=== PATIENT | female | born 1990 | race Caucasian/White ===

== ENCOUNTER 2017-06-15 16:45 | Emergency (ER) | payer MEDICAID ==
[2017-06-15] MEDS ORDERED: Ketorolac 60 MG/2 ML SDV IM ONE (17:40)
--- NOTE | 2017-06-15 17:40 | EDM.PDOC ---
<Shin Hancock - Last Filed: 06/15/17 17:36> ED HPI GENERAL MEDICAL PROBLEM - General Chief Complaint: Genitourinary Problem Stated Complaint: STONES Time Seen by Provider: 06/15/17 17:30 Source of Information: Reports: Patient, Family History Limitations: Reports: No Limitations - History of Present Illness INITIAL COMMENTS - FREE TEXT/NARRATIVE: 27-year-old female with a long history of recurring nephrolithiasis developed sudden onset of right flank pain one hour ago. She has nausea but no vomiting. She feels chilled but not febrile. She was feeling fine up until the symptoms started. She is currently breast-feeding. No diarrhea, no shortness of breath or cough. Onset: Sudden Duration: Hour(s): (One hour ago), Other (Right flank) Severity: Moderate Improves with: Reports: None Associated Symptoms: Reports: Malaise, Nausea/Vomiting. Denies: Chest Pain, Cough, Shortness of Breath Right Lumbar Pain Score (Numeric/FACES): 10 - Related Data Allergies Allergy/AdvReac Type Severity Reaction Status Date / Time sumatriptan [From Imitrex] Allergy Chest Verified 06/15/17 17:20 Presssure sumatriptan succinate Allergy Chest Verified 06/15/17 17:20 [From Imitrex] Presssure hydrocodone bitartrate AdvReac Stomach Verified 06/15/17 17:20 [From Vicodin] Upset tape Allergy Rash Uncoded 06/15/17 17:20 Home Meds: Home Meds Albuterol Sulfate [Albuterol Sulfate HFA] 1 - 2 puff IH Q4H PRN 11/28/13 [ History] Vit37/Iron/Folic Acid [Prenata] 1 each PO DAILY 09/24/16 [History] Omeprazole 20 mg PO BEDTIME 02/26/17 [History] Past Medical History Other HEENT History: report frequent ear infections Respiratory History: Reports: Asthma Genitourinary History: Reports: Renal Calculus 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, Other OB/BYN History: G-2 P-1 Neurological History: Reports: Migraines Psychiatric History: Reports: Anxiety, Depression - Infectious Disease History Infectious Disease History: Reports: Chicken Pox - Past Surgical History HEENT Surgical History: Reports: Oral Surgery Female Surgical History: Reports: Endometrial Ablation Social & Family History - Tobacco Use Smoking Status *Q: Unknown Ever Smoked Years of Tobacco use: 6 Packs/Tins Daily: 0.5 Used Tobacco, but Quit: No Month Tobacco Last Used: today, smoking 6 to 10 cigarettes per day Second Hand Smoke Exposure: Yes - Caffeine Use Caffeine Use: Reports: None - Alcohol Use Days Per Week of Alcohol Use: 0 Number of Drinks Per Day: 4 Total Drinks Per Week: 0 - Recreational Drug Use Recreational Drug Use: No - Living Situation & Occupation Living situation: Reports: Single, with Family ED ROS GENERAL - Review of Systems Review Of Systems: See Below Constitutional: Reports: Chills, Malaise. Denies: Fever HEENT: Reports: No Symptoms Respiratory: Denies: Shortness of Breath, Cough Cardiovascular: Denies: Chest Pain GI/Abdominal: Reports: Abdominal Pain (Pain across the right abdomen) : Reports: Flank Pain. Denies: Frequency Musculoskeletal: Reports: Back Pain Skin: Reports: No Symptoms Neurological: Reports: No Symptoms Psychiatric: Reports: No Symptoms Free Text/Narrative/Comment: Patient received a Depo-Provera shot yesterday for control ED EXAM, GENERAL - Physical Exam Exam: See Below Exam Limited By: No Limitations General Appearance: Alert, Mild Distress (Looks uncomfortable, laying on her right side) Eye Exam: Bilateral Eye: Normal Inspection (No jaundice) Head: Atraumatic Respiratory/Chest: No Respiratory Distress, Lungs Clear Cardiovascular: Regular Rate, Rhythm GI/Abdominal: Tender (Reacts with tenderness to palpation across the right abdomen) Back Exam: CVA Tenderness (R), CVA Tenderness (L) (Any percussion of the back causes her to wince with discomfort) Neurological: Alert, Oriented Skin Exam: Warm, Dry Course - Vital Signs Last Recorded V/S: Last Vital Signs Temp 36.7 C 06/15/17 19:59 Pulse 66 06/15/17 19:59 Resp 16 06/15/17 19:59 BP 96/55 L 06/15/17 19:59 Pulse Ox 96 06/15/17 19:59 - Orders/Labs/Meds Orders: Active Orders 24 hr Category Date Time Status Abdomen Pelvis wo Cont [CT] Stat Exams 06/15/17 17:47 Taken BASIC METABOLIC PANEL,BMP [CHEM] Urgent Lab 06/15/17 19:13 Received Labs: Laboratory Tests 06/15/17 06/15/17 06/15/17 Range/Units 17:29 17:31 19:13 WBC 14.6 H (4.5-11.0) K/uL RBC 4.78 (3.30-5.50) M/uL Hgb 14.9 (12.0-15.0) g/dL Hct 43.6 (36.0-48.0) % MCV 91 (80-98) fL MCH 31 (27-31) pg MCHC 34 (32-36) % Plt Count 194 (150-400) K/uL Neut % (Auto) 83 H (36-66) % Lymph % (Auto) 12 L (24-44) % [place] % (Auto) 5 (2-6) % Eos % (Auto) 1 L (2-4) % Baso % (Auto) 0 (0-1) % Urine Color Yellow Urine Appearance Clear Urine pH 5.0 (4.5-8.0) Ur Specific [place] 1.020 (1.008-1.030) Urine Protein Trace (NEGATIVE) mg/dL Urine Glucose (UA) Normal (NEGATIVE) mg/dL Urine Ketones Negative (NEGATIVE) mg/dL Urine Occult Blood Large (NEGATIVE) Urine Nitrite Negative (NEGATIVE) Urine Bilirubin Small (NEGATIVE) Urine Urobilinogen Normal (NORMAL) mg/dL Ur Leukocyte Esterase Small (NEGATIVE) Urine RBC 20-30 H (0-5) Urine WBC 5-10 H (0-5) Ur Epithelial Cells Moderate Amorphous Sediment Few Urine Bacteria Few Urine Mucus Moderate Urine Other See note Urine HCG, Qual Negative Meds: Medications Discontinued Medications Generic Name Dose Route Start Last Admin Trade Name Rony PRN Reason Stop Dose Admin Ketorolac Tromethamine 60 mg 06/15/17 17:40 06/15/17 17:43 Toradol IM 06/15/17 17:41 60 mg ONETIME ONE Administration Tamsulosin HCl 0.4 mg 06/15/17 19:51 06/15/17 19:57 Flomax PO 06/15/17 19:52 0.4 mg ONETIME ONE Administration - Re-Assessments/Exams Free Text/Narrative Re-Assessment/Exam: 06/15/17 17:40 A UA was obtained. Patient was given 60 mg of Toradol IM which will be followed by a noncontrast CT scan of the abdomen and pelvis. 06/15/17 17:40 Care was turned over to Dr. Castro pending CT scan Departure - Departure Disposition: Home, Self-Care 01 Clinical Impression: Kidney stone - Discharge Information Referrals: PCP,None [Primary Care Provider] - Forms: ED Department Discharge Additional Instructions: You have a 9 mm stone at the beginning of the right ureter. Dr Schwartz, the Urologist second watch sergeant for in [place] wants you to try and pass it. He will have his clinic contact you about an appointment next week. In the meantime be sure you get plenty of liquids to drink but don't overdo it. Try to eat a regular diet. If you notice that you are beginning to have a fever then you should be reevaluated immediately. Take Flomax or tamsulosin 0.4 mg once daily to help the kidney stone pass. This can be secreted in breast milk but is also given to children for some bladder problems. uses it in all the time so it should be okay. For pain first try taking ibuprofen up to 400 mg 3 times per day. This is very similar to the medication you received in the ER. For more pain control you may use the Percocet (oxycodone/acetaminophen 5/325, # 15 tablets.) This is a mild narcotic. It is secreted in breast milk in small amounts. The side effect to watch out for in your baby is sedation. If your baby seems to be getting sedated then stop the medication and once the sedation is gone away you could restart it but at a lower dose. It will also cause sedation in you. It can impair driving. Note that each Percocet tablet has the equivalent of a regular 325 mg tablet of Tylenol. You should not take more than a total of 3000 mg of Tylenol per day. Just keep that in mind in case you decide to take some regular Tylenol to go along with the Percocet. - My Orders Last 24 Hours: My Active Orders 06/15/17 19:13 BASIC METABOLIC PANEL,BMP [CHEM] Urgent - Assessment/Plan Last 24 Hours: My Active Orders 06/15/17 19:13 BASIC METABOLIC PANEL,BMP [CHEM] Urgent <Kenji Castro - Last Filed: 06/15/17 20:20> Course - Re-Assessments/Exams Free Text/Narrative Re-Assessment/Exam: 06/15/17 20:15 This patient was turned over to me at approximately 1845. A CT for kidney stone was pending at the time. This lady has had a history of kidney stones and now with right flank pain for a few hours. CT showed a 9 mm stone at the right ureteropelvic junction with pretty severe hydronephrosis. I spoke with Dr. Colvin at [facility]. He wants her to try to pass the stone. He recommended Flomax 0.4 mg in addition to any analgesics. He said that he uses this medication in a lot and has never had any problems with it. There's not much information and literature about using this in breast-feeding women. I do note that it can be used during and is sometimes used in children so I think it'll be safe for her. I also reviewed use of ibuprofen and believe that it will be safe for her. I reviewed oxycodone in breast-feeding. It is secreted breastmilk and small amounts but I don't believe it will be enough to cause sedation. I reviewed an article in the journal of pediatrics from September 2011, that is the abstract, and believe that should be safe. Mom was counseled about sedation with the medication. See detailed discharge instructions. Departure - Departure Time of Disposition: 20:05 Condition: Fair
[2017-06-15] MEDS ORDERED: Tamsulosin 0.4 MG Cap.ER PO ONE (19:51)
[2017-06-15 20:00] VITALS: BP 96/55
== END 2017-06-15 20:28 | disposition home or self-care (01) ==
LOC: JP.ED 16:45
DX: N13.2 Hydronephrosis with renal and ureteral calculous obstruction (principal); J45.909 Unspecified asthma, uncomplicated; F32.9 Major depressive disorder, single episode, unspecified; Z98.890 Other specified postprocedural states; Z91.048 Other nonmedicinal substance allergy status; Z88.5 Allergy status to narcotic agent
CPT/HCPCS: 36415; 74176; 80048; 81001; 81025; 85025; 96372; 99284; A9270; J1885

== ENCOUNTER 2017-07-13 23:22 | Emergency (ER) | payer MEDICAID ==
[2017-07-14 00:54] VITALS: BP 126/77
--- NOTE | 2017-07-14 01:18 | EDM.PDOC ---
ED HPI GENERAL MEDICAL PROBLEM - General Chief Complaint: General Stated Complaint: SURGERY TODAY - TINGLING IN HANDS AND FEET/LEGS Time Seen by Provider: 07/14/17 01:00 Source of Information: Reports: Patient, Old Records History Limitations: Reports: No Limitations - History of Present Illness INITIAL COMMENTS - FREE TEXT/NARRATIVE: 27 yo female had an unknown type of anesthesia early 07/13/2017 for lithotripsy at an outside facility. Several hrs after she was discharged she developed tingling of her fingers/toes. Does not feel anxious. Has also some weakness of her hand grasps bilaterally. No GRAHAM. No fever. Is only on oxybutynin currently for meds. PHx of child , endometriosis, and kidney stone. Onset Date: 07/13/17 Onset Time: 15:00 Duration: Hour(s):, Constant Location: Reports: Upper Extremity, Left, Upper Extremity, Right, Lower Extremity, Left, Lower Extremity, Right Quality: Reports: Other (numbness/tingling) Severity: Mild Improves with: Reports: None Worsens with: Reports: Other (? time) Context: Reports: Other (Had anesthesia for kidney stone lithotripsy yesterday morning 07/13.) Associated Symptoms: Reports: Weakness (in hands bilat.) Treatments FULL TIME: Reports: Other (see below) (none) Right Flank Pain Score (Numeric/FACES): 7 - Related Data Allergies Allergy/AdvReac Type Severity Reaction Status Date / Time sumatriptan [From Imitrex] Allergy Chest Verified 07/14/17 00:45 Presssure sumatriptan succinate Allergy Chest Verified 07/14/17 00:45 [From Imitrex] Presssure hydrocodone bitartrate AdvReac Stomach Verified 07/14/17 00:45 [From Vicodin] Upset tape Allergy Rash Uncoded 07/14/17 00:45 Home Meds: Home Meds Albuterol Sulfate [Albuterol Sulfate HFA] 1 - 2 puff IH Q4H PRN 11/28/13 [ History] Vit37/Iron/Folic Acid [Prenata] 1 each PO DAILY 09/24/16 [History] Cephalexin [Keflex] 250 mg PO QID 07/14/17 [History] Oxybutynin Chloride [Ditropan Xl] 10 mg PO DAILY 07/14/17 [History] Past Medical History Other HEENT History: report frequent ear infections Respiratory History: Reports: Asthma Genitourinary History: Reports: Renal Calculus, Other (See Below) Other Genitourinary History: lithotripsy with stent 07/13/17 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, Other OB/BYN History: G-2 P-1 Neurological History: Reports: Migraines Psychiatric History: Reports: Anxiety, Depression - Infectious Disease History Infectious Disease History: Reports: Chicken Pox - Past Surgical History HEENT Surgical History: Reports: Oral Surgery Female Surgical History: Reports: Endometrial Ablation Social & Family History - Tobacco Use Smoking Status *Q: Current Every Day Smoker Years of Tobacco use: 10 Packs/Tins Daily: 0.5 Used Tobacco, but Quit: No Month Tobacco Last Used: today, smoking 6 to 10 cigarettes per day Second Hand Smoke Exposure: Yes - Caffeine Use Caffeine Use: Reports: None - Alcohol Use Days Per Week of Alcohol Use: 0 Number of Drinks Per Day: 4 Total Drinks Per Week: 0 - Recreational Drug Use Recreational Drug Use: No - Living Situation & Occupation Living situation: Reports: Single, with Family ED ROS GENERAL - Review of Systems Review Of Systems: See Below Constitutional: Reports: No Symptoms HEENT: Reports: No Symptoms Respiratory: Reports: No Symptoms Cardiovascular: Reports: No Symptoms GI/Abdominal: Reports: No Symptoms : Reports: No Symptoms Musculoskeletal: Reports: No Symptoms Skin: Reports: No Symptoms Neurological: Reports: Numbness (Of extremities) Psychiatric: Reports: No Symptoms. Denies: Anxiety ED EXAM, GENERAL - Physical Exam Exam: See Below Exam Limited By: No Limitations General Appearance: Alert, WD/WN, No Apparent Distress. No: Anxious Eye Exam: Bilateral Eye: Normal Inspection Ears: Normal External Exam, Normal Canal, Hearing Grossly Normal, Normal TMs Ear Exam: Bilateral Ear: Auricle Normal, Canal Normal Nose: Normal Inspection, Normal Mucosa, No Blood Throat/Mouth: Normal Inspection, Normal Lips, Normal Oropharynx, Normal Voice, No Airway Compromise Head: Atraumatic, Normocephalic Neck: Normal Inspection, Supple, Non-Tender Respiratory/Chest: No Respiratory Distress, Lungs Clear, Normal Breath Sounds, No Accessory Muscle Use Cardiovascular: Regular Rate, Rhythm, No Edema Back Exam: Normal Inspection Extremities: Normal Inspection, Non-Tender, No Pedal Edema Neurological: Alert, Oriented, CN II-XII Intact, Normal Cognition, No Motor/ Sensory Deficits, Other (hand grasp strength 4/5 bilaterally, other areas seem to be 5/5) Psychiatric: Normal Affect, Normal Mood Skin Exam: Warm, Dry, Intact, Normal Color, No Rash Lymphatic: No Adenopathy Course - Vital Signs Last Recorded V/S: Last Vital Signs Temp 36.8 C 07/14/17 00:53 Pulse 63 07/14/17 00:53 Resp 16 07/14/17 00:53 BP 126/77 07/14/17 00:53 Pulse Ox 98 07/14/17 00:53 Departure - Departure Time of Disposition: 01:20 Disposition: Home, Self-Care 01 Condition: Good Clinical Impression: Paresthesia - Discharge Information Referrals: Johanny Marroquin PA [Primary Care Provider] - Forms: ED Department Discharge Additional Instructions: If your numbness does not resolve by early tomorrow afternoon discuss with your family doctor. He may elect to refer you to neurology if no cause or treatment is apparent and symptoms persist.
== END 2017-07-14 01:23 | disposition home or self-care (01) ==
LOC: JP.ED 23:22
DX: R20.2 Paresthesia of skin (principal); F17.210 Nicotine dependence, cigarettes, uncomplicated; J45.909 Unspecified asthma, uncomplicated; Z79.899 Other long term (current) drug therapy; Z91.09 Other allergy status, other than to drugs and biological substances; Z88.8 Allergy status to other drugs, medicaments and biological substances
CPT/HCPCS: 99284

== ENCOUNTER 2017-07-15 14:44 | Emergency (ER) | payer MEDICAID ==
[2017-07-15 14:59] VITALS: BP 116/74
[2017-07-15] MEDS ORDERED: Ketorolac 60 MG/2 ML SDV IM ONE (15:35)
--- NOTE | 2017-07-15 15:42 | EDM.PDOC ---
ED HPI GENERAL MEDICAL PROBLEM - General Chief Complaint: Genitourinary Problem Stated Complaint: HAD KIDNEY SURG/BLEEDING Time Seen by Provider: 07/15/17 15:05 Source of Information: Reports: Patient, Family History Limitations: Reports: No Limitations - History of Present Illness INITIAL COMMENTS - FREE TEXT/NARRATIVE: 27-year-old female who had a urinary stent placed on the right side 2 days ago, scheduled for removal of the stent on Monday. She is concerned because she developed some significant hematuria over the past 12 hours. She also has a small amount of increased right flank pain. No fevers or chills, no increased dysuria. No nausea or vomiting. Onset: Gradual (Over the past 12 hours) Severity: Mild Associated Symptoms: Denies: Chest Pain, Fever/Chills, Headaches, Malaise, Nausea/Vomiting, Shortness of Breath, Weakness Right Lower Back Pain Score (Numeric/FACES): 8 - Related Data Allergies Allergy/AdvReac Type Severity Reaction Status Date / Time sumatriptan [From Imitrex] Allergy Chest Verified 07/15/17 15:00 Presssure hydrocodone bitartrate AdvReac Stomach Verified 07/15/17 15:00 [From Vicodin] Upset tape Allergy Rash Uncoded 07/15/17 15:00 Home Meds: Home Meds Albuterol Sulfate [Albuterol Sulfate HFA] 1 - 2 puff IH Q4H PRN 11/28/13 [ History] Vit37/Iron/Folic Acid [Prenata] 1 each PO DAILY 09/24/16 [History] Cephalexin [Keflex] 250 mg PO QID 07/14/17 [History] Oxybutynin Chloride [Ditropan Xl] 10 mg PO DAILY 07/14/17 [History] Past Medical History Other HEENT History: report frequent ear infections Respiratory History: Reports: Asthma Genitourinary History: Reports: Renal Calculus, Other (See Below) Other Genitourinary History: lithotripsy with stent 07/13/17 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, Other OB/BYN History: G-2 P-1 Neurological History: Reports: Migraines Psychiatric History: Reports: Anxiety, Depression - Infectious Disease History Infectious Disease History: Reports: Chicken Pox - Past Surgical History HEENT Surgical History: Reports: Oral Surgery Female Surgical History: Reports: Endometrial Ablation Social & Family History - Tobacco Use Smoking Status *Q: Unknown Ever Smoked Years of Tobacco use: 10 Packs/Tins Daily: 0.5 Used Tobacco, but Quit: No Month Tobacco Last Used: today, smoking 6 to 10 cigarettes per day Second Hand Smoke Exposure: Yes - Caffeine Use Caffeine Use: Reports: None - Alcohol Use Days Per Week of Alcohol Use: 0 Number of Drinks Per Day: 4 Total Drinks Per Week: 0 - Recreational Drug Use Recreational Drug Use: No - Living Situation & Occupation Living situation: Reports: Single, with Family ED ROS GENERAL - Review of Systems Review Of Systems: See Below Constitutional: Denies: Fever, Chills HEENT: Reports: No Symptoms Respiratory: Denies: Shortness of Breath, Pleuritic Chest Pain Cardiovascular: Denies: Chest Pain GI/Abdominal: Denies: Abdominal Pain, Nausea, Vomiting : Reports: Flank Pain (Does have some right flank discomfort), Hematuria Skin: Reports: No Symptoms ED EXAM, RENAL/ - Physical Exam Exam: See Below Exam Limited By: No Limitations General Appearance: Alert, No Apparent Distress Respiratory/Chest: No Respiratory Distress, Lungs Clear Back Exam: CVA Tenderness (R) (She does respond with some tenderness to percussion of the right CVA) Neurological: Alert, Oriented Psychiatric: Normal Affect, Normal Mood Skin Exam: Warm, Dry Course - Vital Signs Last Recorded V/S: Last Vital Signs Temp 99.1 F 07/15/17 14:57 Pulse 101 H 07/15/17 14:57 Resp 14 07/15/17 14:57 BP 116/74 07/15/17 14:57 Pulse Ox 97 07/15/17 14:57 - Orders/Labs/Meds Labs: Laboratory Tests 07/15/17 Range/Units 15:30 WBC 10.2 (4.5-11.0) K/uL RBC 4.67 (3.30-5.50) M/uL Hgb 14.4 (12.0-15.0) g/dL Hct 42.2 (36.0-48.0) % MCV 90 (80-98) fL MCH 31 (27-31) pg MCHC 34 (32-36) % Plt Count 194 (150-400) K/uL Neut % (Auto) 61 (36-66) % Lymph % (Auto) 28 (24-44) % [place] % (Auto) 8 H (2-6) % Eos % (Auto) 3 (2-4) % Baso % (Auto) 0 (0-1) % Meds: Medications Discontinued Medications Generic Name Dose Route Start Last Admin Trade Name Rony PRN Reason Stop Dose Admin Ketorolac Tromethamine 60 mg 07/15/17 15:35 07/15/17 15:42 Toradol IM 07/15/17 15:36 60 mg ONETIME ONE Administration - Re-Assessments/Exams Free Text/Narrative Re-Assessment/Exam: 07/15/17 15:43 Discussed her condition with urology. The hematuria is to be expected. Baseline CBC was obtained, 60 mg of Toradol was given and the urologist did okay yesterday removing the stent today. The patient decided to take Toradol for the next 48 hours however and keep her appointment on Monday for stent removal. If bleeding seems to be worsening, she can return and a repeat hemoglobin can be obtained. 07/15/17 15:59 CBC is normal, white count and hemoglobin both normal. Patient will take ketorolac 10 mg every 6-8 hours for the next 48 hours and return Monday morning as scheduled for stent removal. She can return sooner if worsening. Departure - Departure Time of Disposition: 16:07 Disposition: Home, Self-Care 01 Condition: Good Clinical Impression: Hematuria Qualifiers: Hematuria type: gross Qualified Code(s): R31.0 - Gross hematuria - Discharge Information Instructions: Hematuria, Adult Referrals: Johanny Marroquin PA [Primary Care Provider] - Forms: ED Department Discharge Care Plan Goals: Continue your antibiotic, take one pain medication every 6-8 hours and return Monday morning as scheduled for stent removal. Return sooner if worsening or other concerns.
== END 2017-07-15 16:08 | disposition home or self-care (01) ==
LOC: JP.ED 14:44
DX: R31.0 Gross hematuria (principal); J45.909 Unspecified asthma, uncomplicated; F32.9 Major depressive disorder, single episode, unspecified; Z87.442 Personal history of urinary calculi; Z79.899 Other long term (current) drug therapy; Z88.8 Allergy status to other drugs, medicaments and biological substances; Z88.5 Allergy status to narcotic agent; Z91.048 Other nonmedicinal substance allergy status
CPT/HCPCS: 36415; 85025; 96372; 99284; J1885

== ENCOUNTER 2018-01-21 19:10 | Emergency (ER) | payer MEDICAID ==
[2018-01-21 19:22] VITALS: BP 120/76
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
--- NOTE | 2018-01-22 09:42 | CR ---
Wrist Comp Min 3V Rt INDICATION: fall,injury COMPARISON: None FINDINGS: 3 views. No fracture, dislocation, or other acute bony abnormality. No joint space narr owing.
== END 2018-01-21 20:23 | disposition home or self-care (01) ==
LOC: JP.ED 19:10
DX: S63.501A Unspecified sprain of right wrist, initial encounter (principal); F17.210 Nicotine dependence, cigarettes, uncomplicated; W07.XXXA Fall from chair, initial encounter; Z88.8 Allergy status to other drugs, medicaments and biological substances
CPT/HCPCS: 73110-26-RT; 73110-RT; 99284

== ENCOUNTER 2019-06-30 22:48 | Emergency (ER) | payer MEDICAID ==
[2019-06-30 23:06] VITALS: BP 115/74; PULSE 87
--- NOTE | 2019-06-30 23:52 | CRLCR ---
INDICATION: Sharp foot pain, no injury TECHNIQUE: Foot radiograph 3 views left COMPARISON: None FINDINGS: Bone: No acute fractures or aggressive bone lesions are identified. Joint: The visualized hindfoot, midfoot, and forefoot joints are unremarkable in appearance. No significant ankle effusion is seen. Soft tissue: Unremarkable. No radiopaque foreign bodies are seen. IMPRESSION: 1. No acute osseous injuries or abnormalities are noted. Dictated by: Etienne Wynn MD @ 06/30/2019 23:50:08 (Electronically Signed)
--- NOTE | 2019-06-30 23:53 | EDM.PDOC ---
ED HPI GENERAL MEDICAL PROBLEM - General Chief Complaint: Lower Extremity Injury/Pain Stated Complaint: FOOT HURTS NOT AN ACCIDENT Time Seen by Provider: 06/30/19 23:25 Source of Information: Reports: Patient History Limitations: Reports: No Limitations - History of Present Illness INITIAL COMMENTS - FREE TEXT/NARRATIVE: 29-year-old female with significant left foot pain for the past month. It started after she got a new job and new shoes. It's very painful on the top lateral aspect of her left foot and radiates under the arch and to under the medial malleolus. She does not bruiser swell. It is more painful after activity and less painful after rest. She has no specific pain in the heel. She has had no injury that she remembers. The pain started gradually and has worsened, tonight it was so sharp that she wanted it checked. Onset: Gradual Duration: Week(s): (4 weeks) Associated Symptoms: Reports: No Other Symptoms left foot Pain Score (Numeric/FACES): 4 - Related Data Allergies Allergy/AdvReac Type Severity Reaction Status Date / Time sumatriptan [From Imitrex] Allergy Chest Verified 06/30/19 23:02 Presssure hydrocodone bitartrate AdvReac Stomach Verified 06/30/19 23:02 [From Vicodin] Upset tape Allergy Rash Uncoded 06/30/19 23:02 Home Meds: Home Meds Albuterol Sulfate [Albuterol Sulfate HFA] 1 - 2 puff IH Q4H PRN 11/28/13 [ History] Nitrofurantoin [place]/Macrocryst [Nitrofurantoin Pender-MCR] 100 mg PO BID 06/30/19 [History] Past Medical History Other HEENT History: report frequent ear infections Respiratory History: Reports: Asthma Gastrointestinal History: Reports: GERD Genitourinary History: Reports: Renal Calculus, Other (See Below) Other Genitourinary History: lithotripsy with stent 07/13/17 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: Endometrial Ablation, Endometriosis, Other PERFORATOR OPERATOR History: G-2 P-1 Neurological History: Reports: Migraines Psychiatric History: Reports: Anxiety, Depression - Infectious Disease History Infectious Disease History: Reports: Chicken Pox - Past Surgical History HEENT Surgical History: Reports: Oral Surgery, Other (See Below) Other HEENT Surgeries/Procedures: clogged tear duct surgery Female Surgical History: Reports: Endometrial Ablation Social & Family History - Tobacco Use Smoking Status *Q: Current Every Day Smoker Years of Tobacco use: 10 Packs/Tins Daily: 0.7 - Caffeine Use Caffeine Use: Reports: None - Recreational Drug Use Recreational Drug Use: No - Living Situation & Occupation Living situation: Reports: Single, with Family Review of Systems - Review of Systems Review Of Systems: See Below Constitutional: Denies: Fever Respiratory: Reports: No Symptoms Cardiovascular: Reports: No Symptoms GI/Abdominal: Reports: No Symptoms Skin: Denies: Bruising Neurological: Denies: Paresthesia ED EXAM, GENERAL - Physical Exam Exam: See Below Exam Limited By: No Limitations General Appearance: Alert, No Apparent Distress Respiratory/Chest: No Respiratory Distress Extremities: Other (Remainder of exam is limited to the feet. They appear symmetrical. On palpation she has tenderness over the dorsal aspect of the fourth and fifth metatarsals, pain with passive movement of the fourth and fifth toe and also tenderness to palpation through the arch of the foot and under the medial malleolus. She has no heel tenderness. She has no appreciable swelling or bruising.) Neurological: Alert, Oriented Psychiatric: Normal Affect, Normal Mood Skin Exam: Warm, Dry Course - Vital Signs Last Recorded V/S: Last Vital Signs Temp 98.4 F 06/30/19 23:05 Pulse 87 06/30/19 23:05 Resp 15 06/30/19 23:05 BP 115/74 06/30/19 23:05 Pulse Ox 98 06/30/19 23:05 - Re-Assessments/Exams Free Text/Narrative Re-Assessment/Exam: 06/30/19 23:51 An x-ray of the left foot was obtained and is negative. These images were pushed through to [facility], as I would like her to see Dr. Coello in the next 2 days for a consult for chronic foot pain. She may need orthotics or further evaluation. She was also given crutches to take some of the pressure off the foot. An Raza wrap was applied but it actually made it worse so was removed. Departure - Departure Time of Disposition: 00:01 Disposition: Home, Self-Care 01 Clinical Impression: Pain of left foot - Discharge Information Instructions: Foot Pain Referrals: Johanny Marroquin PA [Primary Care Provider] - Forms: ED Department Discharge Care Plan Goals: Use crutches to take pressure off of your foot for the next couple of days until you can be rechecked by Dr. Coello over at the clinic. Call in the morning for an appointment. Continue with anti-inflammatories and elevation as needed.
== END 2019-07-01 00:01 | disposition home or self-care (01) ==
LOC: JP.ED 22:48
DX: M79.672 Pain in left foot (principal); M79.675 Pain in left toe(s); J45.909 Unspecified asthma, uncomplicated; F17.210 Nicotine dependence, cigarettes, uncomplicated; Z88.8 Allergy status to other drugs, medicaments and biological substances; Z88.5 Allergy status to narcotic agent; Z91.048 Other nonmedicinal substance allergy status; Z79.899 Other long term (current) drug therapy
CPT/HCPCS: 73630-LT; 99283-25

== ENCOUNTER 2019-11-11 17:50 | Emergency (ER) | payer MEDICAID ==
[2019-11-11 18:34] VITALS: BP 107/68; PULSE 99
[2019-11-11] MEDS ORDERED: Sodium Chloride 0.9% 10 ML Syringe FLUSH PRN (18:54)
[2019-11-11] MEDS ORDERED: Ondansetron 4 MG/2 ML SDV IVPUSH ONE (18:55)
[2019-11-11] MEDS ORDERED: Ketorolac 30 MG/ML SDV IVPUSH ONE (18:55)
--- NOTE | 2019-11-11 18:57 | EDM.PDOC ---
ED HPI GENERAL MEDICAL PROBLEM - General Chief Complaint: Genitourinary Problem Stated Complaint: POSSIBLE KINDEY STONE Time Seen by Provider: 11/11/19 18:51 Source of Information: Reports: Patient, Family, RN Notes Reviewed History Limitations: Reports: No Limitations - History of Present Illness INITIAL COMMENTS - FREE TEXT/NARRATIVE: 29-year-old female presents the emergency department a complaint of right-sided flank pain. She has a known history of nephrolithiasis she states this feels very similar to past stones she has been dealing with this for the last 4 days pain has been increasing. Has had nausea and vomiting with a fever Right Flank Pain Score (Numeric/FACES): 10 - Related Data Allergies Allergy/AdvReac Type Severity Reaction Status Date / Time sumatriptan [From Imitrex] Allergy Chest Verified 06/30/19 23:02 Presssure hydrocodone bitartrate AdvReac Stomach Verified 06/30/19 23:02 [From Vicodin] Upset tape Allergy Rash Uncoded 06/30/19 23:02 Home Meds: Home Meds Albuterol Sulfate [Albuterol Sulfate HFA] 1 - 2 puff IH Q4H PRN 11/28/13 [ History] Nitrofurantoin [place]/Macrocryst [Nitrofurantoin [place]-MCR] 100 mg PO BID 06/30/19 [History] Past Medical History Other HEENT History: report frequent ear infections Respiratory History: Reports: Asthma Gastrointestinal History: Reports: GERD Genitourinary History: Reports: Renal Calculus, Other (See Below) Other Genitourinary History: lithotripsy with stent 07/13/17 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: Endometrial Ablation, Endometriosis, 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: G-2 P-1 Neurological History: Reports: Migraines Psychiatric History: Reports: Anxiety, Depression - Infectious Disease History Infectious Disease History: Reports: Chicken Pox - Past Surgical History HEENT Surgical History: Reports: Oral Surgery, Other (See Below) Other HEENT Surgeries/Procedures: clogged tear duct surgery Female Surgical History: Reports: Endometrial Ablation Social & Family History - Tobacco Use Smoking Status *Q: Heavy Tobacco Smoker Years of Tobacco use: 12 Packs/Tins Daily: 0.5 - Caffeine Use Caffeine Use: Reports: Coffee - Recreational Drug Use Recreational Drug Use: No - Living Situation & Occupation Living situation: Reports: Single, with Family ED ROS GENERAL - Review of Systems Review Of Systems: See Below Constitutional: Reports: Fever, Chills HEENT: Reports: No Symptoms Respiratory: Reports: No Symptoms Cardiovascular: Reports: No Symptoms GI/Abdominal: Reports: Abdominal Pain, Nausea, Vomiting : Reports: Flank Pain ED EXAM, RENAL/ - Physical Exam Exam: See Below Exam Limited By: No Limitations General Appearance: Alert, WD/WN, No Apparent Distress Respiratory/Chest: No Respiratory Distress, Lungs Clear, Normal Breath Sounds, No Accessory Muscle Use, Chest Non-Tender Cardiovascular: Regular Rate, Rhythm, No Murmur GI/Abdominal: Soft, Tender (Tender along the right flank) Course - Vital Signs Last Recorded V/S: Last Vital Signs Temp 98.7 F 11/11/19 18:34 Pulse 99 11/11/19 18:34 Resp 16 11/11/19 18:34 BP 107/68 11/11/19 18:34 Pulse Ox 99 11/11/19 18:34 - Orders/Labs/Meds Orders: Active Orders 24 hr Category Date Time Status Peripheral IV Care [RC] . DIRECTED Care 11/11/19 18:54 Active Lactated Ringers [Ringers, Lactated] 1,000 ml Med 11/11/19 19:00 Active IV ASDIRECTED Sodium Chloride 0.9% [Saline Flush] Med 11/11/19 18:54 Active 10 ml FLUSH ASDIRECTED PRN Peripheral IV Insertion Adult [OM.PC] Urgent Oth 11/11/19 18:54 Ordered Medication Orders Lactated Ringer's (Ringers, Lactated) 1,000 mls @ 999 mls/hr IV ASDIRECTED MARK Last Admin: 11/11/19 19:14 Dose: 999 mls/hr Sodium Chloride (Saline Flush) 10 ml FLUSH ASDIRECTED PRN PRN Reason: Keep Vein Open Last Admin: 11/11/19 19:14 Dose: 10 ml Labs: Laboratory Tests 11/11/19 11/11/19 11/11/19 Range/Units 18:54 19:08 19:08 WBC 3.0 L (4.5-11.0) K/uL RBC 4.82 (3.30-5.50) M/uL Hgb 14.7 (12.0-15.0) g/dL Hct 44.1 (36.0-48.0) % MCV 92 (80-98) fL MCH 31 (27-31) pg MCHC 33 (32-36) % Plt Count 120 L (150-400) K/uL Neut % (Auto) 51 (36-66) % Lymph % (Auto) 33 (24-44) % [place] % (Auto) 15 H (2-6) % Eos % (Auto) 0 L (2-4) % Baso % (Auto) 0 (0-1) % Sodium 141 (140-148) mmol/L Potassium 4.3 (3.6-5.2) mmol/L Chloride 105 (100-108) mmol/L Carbon Dioxide 23 (21-32) mmol/L Anion Gap 12.6 (5.0-14.0) mmol/L BUN 12 (7-18) mg/dL Creatinine 0.9 (0.6-1.0) mg/dL Est Cr Clr Drug Dosing 91.31 mL/min Estimated GFR (MDRD) > 60 (>60) Glucose 71 L (74-106) mg/dL Lactic Acid (0.4-2.0) mmol/L Calcium 8.4 L (8.5-10.1) mg/dL Total Bilirubin 0.3 (0.2-1.0) mg/dL AST 30 D (15-37) U/L ALT 42 (12-78) U/L Alkaline Phosphatase 43 L (46-116) U/L Total Protein 7.3 (6.4-8.2) g/dL Albumin 3.7 (3.4-5.0) g/dL Globulin 3.6 H (2.3-3.5) g/dL Albumin/Globulin Ratio 1.0 L (1.2-2.2) Lipase 140 (73-393) U/L Urine Color Yellow (YELLOW) Urine Appearance Cloudy A (CLEAR) Urine pH 5.5 (5.0-8.0) Ur Specific [place] >= 1.030 (1.008-1.030) Urine Protein Negative (NEGATIVE) mg/dL Urine Glucose (UA) Negative (NEGATIVE) mg/dL Urine Ketones 40 H (NEGATIVE) mg/dL Urine Occult Blood Moderate H (NEGATIVE) Urine Nitrite Negative (NEGATIVE) Urine Bilirubin Small H (NEGATIVE) Urine Urobilinogen 0.2 (0.2-1.0) EU/dL Ur Leukocyte Esterase Negative (NEGATIVE) Urine RBC 0-5 (0-5) Urine WBC 0-5 (0-5) Ur Epithelial Cells Many Amorphous Sediment Moderate Urine Bacteria Many 11/11/19 Range/Units 19:08 WBC (4.5-11.0) K/uL RBC (3.30-5.50) M/uL Hgb (12.0-15.0) g/dL Hct (36.0-48.0) % MCV (80-98) fL MCH (27-31) pg MCHC (32-36) % Plt Count (150-400) K/uL Neut % (Auto) (36-66) % Lymph % (Auto) (24-44) % [place] % (Auto) (2-6) % Eos % (Auto) (2-4) % Baso % (Auto) (0-1) % Sodium (140-148) mmol/L Potassium (3.6-5.2) mmol/L Chloride (100-108) mmol/L Carbon Dioxide (21-32) mmol/L Anion Gap (5.0-14.0) mmol/L BUN (7-18) mg/dL Creatinine (0.6-1.0) mg/dL Est Cr Clr Drug Dosing mL/min Estimated GFR (MDRD) (>60) Glucose (74-106) mg/dL Lactic Acid 1.4 (0.4-2.0) mmol/L Calcium (8.5-10.1) mg/dL Total Bilirubin (0.2-1.0) mg/dL AST (15-37) U/L ALT (12-78) U/L Alkaline Phosphatase (46-116) U/L Total Protein (6.4-8.2) g/dL Albumin (3.4-5.0) g/dL Globulin (2.3-3.5) g/dL Albumin/Globulin Ratio (1.2-2.2) Lipase (73-393) U/L Urine Color (YELLOW) Urine Appearance (CLEAR) Urine pH (5.0-8.0) Ur Specific [place] (1.008-1.030) Urine Protein (NEGATIVE) mg/dL Urine Glucose (UA) (NEGATIVE) mg/dL Urine Ketones (NEGATIVE) mg/dL Urine Occult Blood (NEGATIVE) Urine Nitrite (NEGATIVE) Urine Bilirubin (NEGATIVE) Urine Urobilinogen (0.2-1.0) EU/dL Ur Leukocyte Esterase (NEGATIVE) Urine RBC (0-5) Urine WBC (0-5) Ur Epithelial Cells Amorphous Sediment Urine Bacteria Meds: Medications Generic Name Dose Route Start Last Admin Trade Name Freq PRN Reason Stop Dose Admin Lactated Ringer's 1,000 mls @ 999 mls/hr 11/11/19 19:00 11/11/19 19:14 Ringers, Lactated IV 999 mls/hr ASDIRECTED MARK Administration Sodium Chloride 10 ml 11/11/19 18:54 11/11/19 19:14 Saline Flush FLUSH 10 ml ASDIRECTED PRN Administration Keep Vein Open Discontinued Medications Generic Name Dose Route Start Last Admin Trade Name Freq PRN Reason Stop Dose Admin Diphenhydramine HCl 50 mg 11/11/19 19:56 11/11/19 19:58 Benadryl IVPUSH 11/11/19 19:57 50 mg ONETIME ONE Administration Fentanyl 100 mcg 11/11/19 19:35 11/11/19 19:38 Sublimaze IVPUSH 11/11/19 19:36 100 mcg ONETIME ONE Administration Ketorolac Tromethamine 30 mg 11/11/19 18:55 11/11/19 19:17 Toradol IVPUSH 11/11/19 18:56 30 mg ONETIME ONE Administration Ondansetron HCl 4 mg 11/11/19 18:55 11/11/19 19:14 Zofran IVPUSH 11/11/19 18:56 4 mg ONETIME ONE Administration Departure - Departure Time of Disposition: 20:33 Disposition: Home, Self-Care 01 Condition: Fair Clinical Impression: Right flank pain - Discharge Information Instructions: Flank Pain, Adult Referrals: Johanny Marroquin PA [Primary Care Provider] - Forms: ED Department Discharge Additional Instructions: Use ibuprofen for baseline pain control use Percocet for breakthrough pain, please followup with your primary care provider in 3-5 days if not better, please call return to the emergency department with worsening of symptoms. Sepsis Event Note - Evaluation Sepsis Screening Result: No Definite Risk - Focused Exam Vital Signs: Vital Signs Temp Pulse Resp BP Pulse Ox 11/11/19 18:34 98.7 F 99 16 107/68 99 11/11/19 18:33 98.7 F 99 16 107/68 99 Date Exam was Performed: 11/11/19 Time Exam was Performed: 20:31 - My Orders Last 24 Hours: My Active Orders 11/11/19 18:54 Peripheral IV Care [RC] . DIRECTED Sodium Chloride 0.9% [Saline Flush] 10 ml FLUSH ASDIRECTED PRN Peripheral IV Insertion Adult [OM.PC] Urgent 11/11/19 19:00 Lactated Ringers [Ringers, Lactated] 1,000 ml IV ASDIRECTED - Assessment/Plan Last 24 Hours: My Active Orders 11/11/19 18:54 Peripheral IV Care [RC] . DIRECTED Sodium Chloride 0.9% [Saline Flush] 10 ml FLUSH ASDIRECTED PRN Peripheral IV Insertion Adult [OM.PC] Urgent 11/11/19 19:00 Lactated Ringers [Ringers, Lactated] 1,000 ml IV ASDIRECTED Plan: Assessment Acuity = acute Site and laterality = right-sided flank pain Etiology = possible nephrolithiasis versus renal colic Manifestations = none Location of injury = Home Lab values = WBC low at 3.0 consistent leukopenia, CMP unremarkable urinalysis does have moderate amount of blood consistent with a hematuria CT scan shows no acute process no stone prior hydronephrosis has resolved Plan I did review results lab work and CT scan results with her she initially received no relief from the Toradol was provided fentanyl which provided good relief, however she did develop some itching this was solved by Benadryl discharged home Percocet 5/325 1 tab p.o. 3 times daily PRN total #6 follow-up primary care 3 to 5 days if not better This note was dictated using [employer] voice recognition software please call with any questions on syntax or grammar.
[2019-11-11] MEDS ORDERED: Lactated Ringers 1,000 ML IV SCH (19:00)
[2019-11-11] MEDS ORDERED: fentaNYL 100 MCG/2 ML SDV IVPUSH ONE (19:35)
[2019-11-11] MEDS ORDERED: diphenhydrAMINE 50 MG/ML SDV IVPUSH ONE (19:56)
--- NOTE | 2019-11-11 20:25 | CRLCT ---
INDICATION: Right-sided flank pain. History of calculi. COMPARISON: 06/15/2017 TECHNIQUE: CT examination of the abdomen and pelvis was performed without contrast enhancement using 2 mm thick axial sections from the lung bases through the pubic symphysis. Oral contrast was not administered. Please note that all CT scans at this facility use dose modulation, iterative reconstruction, and/or weight-based dosing when appropriate to reduce radiation dose to as low as reasonably achievable. FINDINGS: In the abdomen, the unenhanced liver, spleen, pancreas, and adrenals are normal in appearance. The unenhanced kidneys are normal in appearance. The previously seen moderate right hydronephrosis has resolved, with passage of the previously seen right UPJ calculus. There is no sign of any renal or ureteral calculi on either side. The gallbladder is normal in appearance. The abdominal aorta is normal in caliber with no sign of dilatation. There is no sign of retroperitoneal mass or adenopathy. The stomach, loops of small bowel, and colon in the abdomen are normal in appearance. Again seen is a small fat containing periumbilical hernia. In the pelvis, the retrocecal appendix is normal in appearance with no sign of inflammatory process. The loops of small bowel and colon in the pelvis are normal in appearance. The uterus and adnexal regions are normal in appearance. The urinary bladder is normal in appearance. There is no sign of pelvic or inguinal mass or adenopathy. The lung bases are clear. Again seen is a bone island in the left iliac wing adjacent to the inferior left sacroiliac joint. Again seen is minimal scoliosis of the lumbar spine convex towards the left. The osseous structures are otherwise normal in appearance for the patient`s age. IMPRESSION: Nothing seen to explain the patient`s right flank pain. No sign of any abnormality of the right urinary system with no sign of calculus or obstruction. Normal appearance of the appendix. CT of the abdomen shows resolution of the previously seen moderate right hydronephrosis with passage of the previously seen right UPJ calculus. No sign of any renal or ureteral calculi in either kidney. Normal CT of the pelvis without contrast. Please note that all CT scans at this facility use dose modulation, iterative reconstruction, and/or weight-based dosing when appropriate to reduce radiation dose to as low as reasonably achievable. Dictated by Bryant Medina MD @ Nov 11 2019 8:19PM Signed by Dr. Bryant Medina @ Nov 11 2019 8:24PM
== END 2019-11-11 20:41 | disposition home or self-care (01) ==
LOC: JP.ED 17:50
DX: R10.9 Unspecified abdominal pain (principal); J45.909 Unspecified asthma, uncomplicated; F17.210 Nicotine dependence, cigarettes, uncomplicated; Z88.8 Allergy status to other drugs, medicaments and biological substances; Z88.5 Allergy status to narcotic agent; Z91.048 Other nonmedicinal substance allergy status; Z79.899 Other long term (current) drug therapy
CPT/HCPCS: 36415; 74176; 80053; 81001; 83605; 83690; 85025; 96361; 96374; 96375; 99284; J1200; J1885; J2405; J3010; J7120

== ENCOUNTER 2020-09-02 13:00 | Emergency (ER) | payer MEDICAID ==
--- NOTE | 2020-09-02 13:23 | EDM.PDOC ---
ED HPI GENERAL MEDICAL PROBLEM - General Chief Complaint: Abdominal Pain Stated Complaint: PAIN ON RIGHT RIB AREA Time Seen by Provider: 09/02/20 13:23 Source of Information: Reports: Patient History Limitations: Reports: No Limitations - History of Present Illness INITIAL COMMENTS - FREE TEXT/NARRATIVE: 30-year-old female with persistent abdominal pain for the past week. She has been in the clinic several times, labs look normal and she had an ultrasound today. The pain was better but after she went home she had a artificial latte and her pain recurred in her right upper quadrant radiating to her right shoulder. She called the clinic and they sent her to the emergency room. No fevers or chills, no nausea vomiting, she feels like her upper abdomen is distended or swollen. Onset: Gradual Duration: Week(s): (Symptoms for the last 4 to 6 weeks, worse over the past week) Location: Reports: Abdomen (Right upper quadrant) Upper Abdomen Pain Score (Numeric/FACES): 9 - Related Data Allergies Allergy/AdvReac Type Severity Reaction Status Date / Time sumatriptan [From Imitrex] Allergy Chest Verified 09/02/20 13:12 Presssure hydrocodone bitartrate AdvReac Stomach Verified 09/02/20 13:12 [From Vicodin] Upset tape Allergy Rash Uncoded 09/02/20 13:12 Home Meds: Home Meds Albuterol Sulfate [Albuterol Sulfate HFA] 1 - 2 puff IH Q4H PRN 11/28/13 [History] Past Medical History Other HEENT History: report frequent ear infections Respiratory History: Reports: Asthma Gastrointestinal History: Reports: GERD Genitourinary History: Reports: Renal Calculus, Other (See Below) Other Genitourinary History: lithotripsy with stent 07/13/17 MEDIA REPORTER History: Reports: Endometrial Ablation, Endometriosis, Other MEDIA REPORTER History: G-2 P-1 Neurological History: Reports: Migraines Psychiatric History: Reports: Anxiety, Depression - Infectious Disease History Infectious Disease History: Reports: Chicken Pox - Past Surgical History Head Surgeries/Procedures: Reports: None HEENT Surgical History: Reports: Oral Surgery, Other (See Below) Other HEENT Surgeries/Procedures: clogged tear duct surgery Respiratory Surgical History: Reports: None GI Surgical History: Reports: None Female Surgical History: Reports: Endometrial Ablation Neurological Surgical History: Reports: None Dermatological Surgical History: Reports: None Social & Family History - Tobacco Use Tobacco Use Status *Q: Current Every Day Tobacco User Years of Tobacco use: 10 Packs/Tins Daily: 0.5 Used Tobacco, but Quit: No Second Hand Smoke Exposure: No - Caffeine Use Caffeine Use: Reports: Coffee - Recreational Drug Use Recreational Drug Use: No - Living Situation & Occupation Living situation: Reports: Single, with Family ED ROS GENERAL - Review of Systems Review Of Systems: See Below Constitutional: Reports: Malaise. Denies: Fever, Chills HEENT: Reports: No Symptoms Respiratory: Denies: Shortness of Breath Cardiovascular: Denies: Chest Pain GI/Abdominal: Reports: Abdominal Pain, Nausea. Denies: Constipation, Diarrhea, Vomiting Skin: Reports: No Symptoms Neurological: Reports: No Symptoms Psychiatric: Reports: No Symptoms ED EXAM, GI/ABD - Physical Exam Exam: See Below Exam Limited By: No Limitations General Appearance: Alert, Mild Distress (Fairly uncomfortable) Eyes: Right: Normal Appearance (No jaundice, normal hydration) Respiratory/Chest: No Respiratory Distress, Lungs Clear Cardiovascular: Regular Rate, Rhythm GI/Abdominal Exam: Soft, Tender (Tender in the right upper quadrant but no significant guarding, equivocal rebound) Neurological: Alert, Oriented Psychiatric: Normal Affect, Normal Mood Skin Exam: Warm, Dry Course - Vital Signs Last Recorded V/S: Last Vital Signs Temp 98.3 F 09/02/20 13:14 Pulse 88 09/02/20 13:14 Resp 17 09/02/20 13:14 BP 118/65 09/02/20 13:14 Pulse Ox 95 09/02/20 13:14 - Orders/Labs/Meds Meds: Medications Discontinued Medications Generic Name Dose Route Start Last Admin Trade Name Wesq PRN Reason Stop Dose Admin Al Hydroxide/Mg Hydroxide 15 0 ml 09/02/20 13:35 09/02/20 13:40 ml/ Lidocaine HCl 15 ml PO 09/02/20 13:36 15 ml ONETIME ONE Administration Hydromorphone HCl 1 mg 09/02/20 14:34 09/02/20 14:39 Dilaudid IM 09/02/20 14:35 1 mg ONETIME ONE Administration - Re-Assessments/Exams Free Text/Narrative Re-Assessment/Exam: 09/02/20 14:51 Clinic records were reviewed, her ultrasound has not been read yet. CT of the abdomen and pelvis without contrast was ordered Results of the CT were completely normal. She was given 1 mg of IM Dilaudid which improved her pain. A note was given for the next couple of days off work so she can get this worked up with a HIDA scan, this will be ordered by her primary provider. Departure - Departure Time of Disposition: 14:57 Disposition: Home, Self-Care 01 Clinical Impression: Abdominal pain Qualifiers: Abdominal location: right upper quadrant Qualified Code(s): R10.11 - Right upper quadrant pain - Discharge Information Instructions: Abdominal Pain, Adult, [id number] Referrals: PCP,None [Primary Care Provider] - Forms: ED Department Discharge Care Plan Goals: Liquid nonfat diet may be beneficial for the next couple of days until this work-up is finished. Return to the emergency room if pain is uncontrollable, or you develop fever or persistent vomiting. Sepsis Event Note (ED) - Evaluation Sepsis Screening Result: No Definite Risk
[2020-09-02 13:35] VITALS: BP 118/65; PULSE 88
[2020-09-02] MEDS ORDERED: Alum Hydrox/Mag Hydrox/Simeth 15 ML, Lidocaine 2% 15 ML PO ONE ×2 (13:35)
--- NOTE | 2020-09-02 14:28 | CT ---
Abdomen Pelvis wo Cont CLINICAL HISTORY: Abdominal pain COMPARISON: October 2019. TECHNIQUE: Axial tomographic images are obtained from the dome of the diaphragm to the pubic symphysis without IV contrast enhancement. No oral contrast was used. The dosage reduction and iterative reconstruction techniques employed. FINDINGS: The lung bases are clear. The liver shows no mass or biliary dilatation. There is a subcentimeter low-attenuation focus in the left lobe near the interlobar fissure. This is likely a small cyst. The gallbladder has a normal appearance. The spleen has a normal size and shape. The pancreas shows no mass or inflammatory change. The adrenal glands appear normal bilaterally. The kidneys show no stones or hydronephrosis. The ureters have a normal course and contour. The bladder has a normal contour. Uterus is mildly prominent. Some of this is positional. It is retroflexed. It is unchanged from prior study. There is a low-attenuation focus in the left adnexal region which measures 2 cm. This felt to be ovarian cyst.There are follicles in both ovaries. The aorta has a normal contour. There is no suspicious retroperitoneal adenopathy. There are a few scattered small nonspecific lymph nodes in the mesentery. This is similar to prior study. The appendix has normal contour. Small intestinal gas pattern is nonacute. IMPRESSION: No acute intra-abdominal findings No significant change from October 2019
[2020-09-02] MEDS ORDERED: HYDROmorphone 1 MG/ML Syringe IM ONE (14:34)
== END 2020-09-02 14:57 | disposition home or self-care (01) ==
LOC: JP.ED 13:00
DX: R10.11 Right upper quadrant pain (principal); R11.0 Nausea; R53.81 Other malaise; J45.909 Unspecified asthma, uncomplicated; F17.210 Nicotine dependence, cigarettes, uncomplicated; Z88.5 Allergy status to narcotic agent; Z91.09 Other allergy status, other than to drugs and biological substances
CPT/HCPCS: 74176; 96372; 99284; A9270; J1170

== ENCOUNTER 2021-10-15 17:04 | Emergency (ER) | payer MEDICAID ==
[2021-10-15] MEDS ORDERED: Ketorolac 30 MG/ML SDV IM ONE (18:19)
[2021-10-15 19:32] VITALS: BP 98/61; PULSE 62
[2021-10-15] MEDS ORDERED: fentaNYL 100 MCG/2 ML SDV IM ONE (20:12)
== END 2021-10-15 20:21 | disposition home or self-care (01) ==
LOC: JP.ED 17:04
DX: K59.04 Chronic idiopathic constipation (principal); Z88.5 Allergy status to narcotic agent; Z88.8 Allergy status to other drugs, medicaments and biological substances; Z91.048 Other nonmedicinal substance allergy status
CPT/HCPCS: 74176; 96372; 99284-25; J1885

== ENCOUNTER 2023-06-25 11:24 | Emergency (ER) | payer MEDICAID ==
[2023-06-25 12:11] VITALS: BP 99/56; PULSE 70
== END 2023-06-25 13:00 | disposition home or self-care (01) ==
LOC: JP.ED 11:24
DX: L30.9 Dermatitis, unspecified (principal); J45.909 Unspecified asthma, uncomplicated; K21.9 Gastro-esophageal reflux disease without esophagitis; Z88.5 Allergy status to narcotic agent; Z91.048 Other nonmedicinal substance allergy status; Z79.899 Other long term (current) drug therapy
CPT/HCPCS: 99282

== ENCOUNTER 2024-05-10 08:28 | Emergency (ER) | payer MEDICAID ==
[2024-05-10 08:45] VITALS: BP 114/69; PULSE 80
[2024-05-10 09:53] LABS: BASOPHILS ABSOLUTE AUTO 0.03 K/uL (0.00-0.10); BASOPHILS PERCENT AUTO 0.5 % (0.1-1.3); EOSINOPHILS ABSOLUTE AUTO 0.09 K/uL (0.00-0.40); EOSINOPHILS PERCENT AUTO 1.6 % (0.0-5.4); HEMATOCRIT 37.8 % (34.3-46.0); HEMOGLOBIN 13.5 g/dL (11.2-15.5); IMMATURE GRAN PERCENT AUTO 0.4 % (0.0-0.7); LYMPHOCYTES ABSOLUTE AUTO 1.57 K/uL (0.8-3.3); MEAN CORPUSCULAR HEMOGLOBIN 30.7 pg (31.6-35.5); MEAN CORPUSCULAR HGB CONC 35.7 g/dL (31.6-35.5); MEAN CORPUSCULAR VOLUME 85.9 fL (81.4-99.0); MONOCYTES ABSOLUTE AUTO 0.32 K/uL (0.20-0.90); MONOCYTES PERCENT AUTO 5.7 % (3.3-12.6); NEUTROPHILS ABSOLUTE AUTO 3.57 K/uL (1.0-7.6); NEUTROPHILS PERCENT AUTO 63.8 % (40.0-78.1); PLATELET COUNT,PLT 165 K/uL (130-375); WHITE BLOOD CELL COUNT,WBC 5.6 K/uL (3.2-11.0)
[2024-05-10 09:54] LABS: IMMATURE GRAN ABSOLUTE AUTO 0.02 K/uL (0.00-0.23)
[2024-05-10 10:44] LABS: APPEARANCE,URINE CLOUDY (CLEAR); BILIRUBIN,URINE NEGATIVE (NEGATIVE); COLOR,URINE YELLOW (YELLOW); GLUCOSE,URINE NEGATIVE (NEGATIVE); KETONES,URINE NEGATIVE (NEGATIVE); LEUKOCYTE ESTERASE,URINE SMALL (NEGATIVE); NITRITE,URINE NEGATIVE (NEGATIVE); OCCULT BLOOD,URINE NEGATIVE (NEGATIVE); PH,URINE 8.5 (5.0-8.0); PROTEIN,URINE NEGATIVE (NEGATIVE); UROBILINOGEN,URINE 0.2 EU/dL (0.2-1.0)
[2024-05-10 10:50] LABS: AMORPHOUS SEDIMENT,URINE NOT SEEN; BACTERIA,URINE MANY; EPITHELIAL CELLS,URINE MANY; MUCUS,URINE MODERATE; RBC,URINE 0-5 (0-5); WBC,URINE 0-5 (0-5)
== END 2024-05-10 11:13 | disposition home or self-care (01) ==
LOC: JP.ED 08:28
DX: O23.91 Unspecified genitourinary tract infection in pregnancy, first trimester (principal); R82.71 Bacteriuria; J45.909 Unspecified asthma, uncomplicated; K21.9 Gastro-esophageal reflux disease without esophagitis; Z79.899 Other long term (current) drug therapy; Z88.5 Allergy status to narcotic agent; Z88.8 Allergy status to other drugs, medicaments and biological substances; Z91.048 Other nonmedicinal substance allergy status; Z3A.01 Less than 8 weeks gestation of pregnancy
CPT/HCPCS: 36415; 76817; 76817-26; 81001; 84702; 85025; 87086; 99284

== ENCOUNTER 2024-05-31 08:52 | Emergency (ER) | payer MEDICAID ==
[2024-05-31 09:04] VITALS: BP 100/63; PULSE 92
[2024-05-31] MEDS ORDERED: Naloxone 0.4 MG/ML SDV IVPUSH PRN ×2 (09:55→11:54)
[2024-05-31 10:08] LABS: BASOPHILS PERCENT AUTO 0.2 % (0.1-1.3); EOSINOPHILS ABSOLUTE AUTO 0.09 K/uL (0.00-0.40); EOSINOPHILS PERCENT AUTO 1.6 % (0.0-5.4); HEMATOCRIT 36.6 % (34.3-46.0); HEMOGLOBIN 13.1 g/dL (11.2-15.5); IMMATURE GRAN PERCENT AUTO 0.2 % (0.0-0.7); LYMPHOCYTES ABSOLUTE AUTO 1.67 K/uL (0.8-3.3); LYMPHOCYTES PERCENT AUTO 29.5 % (11.4-47.7); MEAN CORPUSCULAR HGB CONC 35.8 g/dL (31.6-35.5); MEAN CORPUSCULAR VOLUME 86.5 fL (81.4-99.0); MONOCYTES ABSOLUTE AUTO 0.31 K/uL (0.20-0.90); MONOCYTES PERCENT AUTO 5.5 % (3.3-12.6); NEUTROPHILS ABSOLUTE AUTO 3.57 K/uL (1.0-7.6); PLATELET COUNT,PLT 174 K/uL (130-375); RED BLOOD CELL COUNT 4.23 M/uL (3.77-5.24); WHITE BLOOD CELL COUNT,WBC 5.7 K/uL (3.2-11.0)
[2024-05-31 10:11] LABS: APPEARANCE,URINE TURBID (CLEAR); BILIRUBIN,URINE NEGATIVE (NEGATIVE); COLOR,URINE YELLOW (YELLOW); GLUCOSE,URINE NEGATIVE (NEGATIVE); KETONES,URINE NEGATIVE (NEGATIVE); LEUKOCYTE ESTERASE,URINE SMALL (NEGATIVE); NITRITE,URINE NEGATIVE (NEGATIVE); OCCULT BLOOD,URINE NEGATIVE (NEGATIVE); PROTEIN,URINE NEGATIVE (NEGATIVE); UROBILINOGEN,URINE 0.2 EU/dL (0.2-1.0)
[2024-05-31 10:30] LABS: A/G RATIO 0.9 (1.2-2.2); ALANINE AMINOTRANSFERASE,ALT 19 U/L (12-78); ALBUMIN 3.3 g/dL (3.4-5.0); ALKALINE PHOSPHATASE 44 U/L (46-116); ASPARTATE AMNIOTRANSFERASE,AST 13 U/L (15-37); BILIRUBIN TOTAL 0.4 mg/dL (0.2-1.0); BLOOD UREA NITROGEN,BUN 7 mg/dL (7-18); CALCIUM 9.3 mg/dL (8.5-10.1); CARBON DIOXIDE,CO2 25 mmol/L (21-32); CHLORIDE,CL 103 mmol/L (100-108); CREATININE 0.8 mg/dL (0.6-1.0); EST CRCL DRUG DOSING (CG) 94.51 mL/min; ESTIMATED GFR 100 mL/min (>60); GLUCOSE RANDOM 87 mg/dL (74-106); POTASSIUM,K 3.9 mmol/L (3.6-5.2); PROTEIN TOTAL,TP 7.1 g/dL (6.4-8.2); SODIUM,NA 138 mmol/L (140-148)
[2024-05-31] MEDS: Sodium Chloride 0.9% 1,000 ML IV SCH (10:37)
[2024-05-31] MEDS: Ondansetron 4 MG/2 ML SDV IVPUSH ONE (10:37)
[2024-05-31 10:40] LABS: ANION GAP 13.9 mmol/L (5.0-14.0); BASOPHILS ABSOLUTE AUTO 0.01 K/uL (0.00-0.10); IMMATURE GRAN ABSOLUTE AUTO 0.01 K/uL (0.00-0.23)
[2024-05-31] MEDS: HYDROmorphone 0.5 MG/0.5 ML Syringe IVPUSH ONE ×2 (10:41→12:11)
[2024-05-31 10:42] LABS: AMORPHOUS SEDIMENT,URINE NOT SEEN; BACTERIA,URINE MANY; EPITHELIAL CELLS,URINE MANY; MUCUS,URINE MODERATE; RBC,URINE 0-5 (0-5)
== END 2024-05-31 12:48 | disposition home or self-care (01) ==
LOC: JP.ED 08:52
DX: O21.9 Vomiting of pregnancy, unspecified (principal); O23.11 Infections of bladder in pregnancy, first trimester; O99.281 Endocrine, nutritional and metabolic diseases complicating pregnancy, first trimester; O99.351 Diseases of the nervous system complicating pregnancy, first trimester; O99.611 Diseases of the digestive system complicating pregnancy, first trimester; N30.00 Acute cystitis without hematuria; G43.909 Migraine, unspecified, not intractable, without status migrainosus; E86.0 Dehydration; K21.9 Gastro-esophageal reflux disease without esophagitis; Z3A.10 10 weeks gestation of pregnancy; Z79.899 Other long term (current) drug therapy; Z88.8 Allergy status to other drugs, medicaments and biological substances; Z88.5 Allergy status to narcotic agent; Z91.048 Other nonmedicinal substance allergy status
CPT/HCPCS: 36415; 80053; 81001; 84702; 85025; 96361; 96374; 96375; 96376; 99284; J1170; J2405; J7030

== ENCOUNTER 2024-07-29 09:32 | Emergency (ER) | payer MEDICAID ==
[2024-07-29 09:42] VITALS: BP 113/63; PULSE 86
[2024-07-29 10:21] LABS: APPEARANCE,URINE CLOUDY (CLEAR); BILIRUBIN,URINE NEGATIVE (NEGATIVE); COLOR,URINE YELLOW (YELLOW); GLUCOSE,URINE NEGATIVE (NEGATIVE); KETONES,URINE NEGATIVE (NEGATIVE); LEUKOCYTE ESTERASE,URINE NEGATIVE (NEGATIVE); NITRITE,URINE NEGATIVE (NEGATIVE); OCCULT BLOOD,URINE NEGATIVE (NEGATIVE); PH,URINE 7.5 (5.0-8.0); PROTEIN,URINE TRACE mg/dL (NEGATIVE)
== END 2024-07-29 11:09 | disposition home or self-care (01) ==
LOC: JP.ED 09:32
DX: O26.52 Maternal hypotension syndrome, second trimester (principal); Z3A.18 18 weeks gestation of pregnancy; J45.909 Unspecified asthma, uncomplicated; K21.9 Gastro-esophageal reflux disease without esophagitis; Z79.899 Other long term (current) drug therapy; Z88.6 Allergy status to analgesic agent; Z88.5 Allergy status to narcotic agent; Z91.048 Other nonmedicinal substance allergy status
CPT/HCPCS: 81003; 99284

== ENCOUNTER 2024-09-17 15:58 | Emergency (ER) | payer MEDICAID ==
[2024-09-17] MEDS ORDERED: Sodium Chloride 0.9% 10 ML Syringe FLUSH PRN (16:47)
[2024-09-17 16:59] LABS: BASOPHILS PERCENT AUTO 0.2 % (0.1-1.3); EOSINOPHILS ABSOLUTE AUTO 0.14 K/uL (0.00-0.40); EOSINOPHILS PERCENT AUTO 1.7 % (0.0-5.4); HEMATOCRIT 34.9 % (34.3-46.0); HEMOGLOBIN 12.1 g/dL (11.2-15.5); IMMATURE GRAN ABSOLUTE AUTO 0.04 K/uL (0.00-0.23); IMMATURE GRAN PERCENT AUTO 0.5 % (0.0-0.7); LYMPHOCYTES ABSOLUTE AUTO 1.79 K/uL (0.8-3.3); LYMPHOCYTES PERCENT AUTO 21.3 % (11.4-47.7); MEAN CORPUSCULAR HGB CONC 34.7 g/dL (31.6-35.5); MEAN CORPUSCULAR VOLUME 89.5 fL (81.4-99.0); MONOCYTES ABSOLUTE AUTO 0.53 K/uL (0.20-0.90); MONOCYTES PERCENT AUTO 6.3 % (3.3-12.6); NEUTROPHILS ABSOLUTE AUTO 5.87 K/uL (1.0-7.6); PLATELET COUNT,PLT 181 K/uL (130-375); WHITE BLOOD CELL COUNT,WBC 8.4 K/uL (3.2-11.0)
[2024-09-17] MEDS: Sodium Chloride 0.9% 1,000 ML IV SCH ×2 (17:00→18:08)
[2024-09-17 17:01] LABS: BASOPHILS ABSOLUTE AUTO 0.02 K/uL (0.00-0.10)
[2024-09-17 17:08] LABS: APPEARANCE,URINE CLOUDY (CLEAR); BILIRUBIN,URINE NEGATIVE (NEGATIVE); COLOR,URINE YELLOW (YELLOW); GLUCOSE,URINE NEGATIVE (NEGATIVE); KETONES,URINE NEGATIVE (NEGATIVE); LEUKOCYTE ESTERASE,URINE NEGATIVE (NEGATIVE); NITRITE,URINE NEGATIVE (NEGATIVE); OCCULT BLOOD,URINE NEGATIVE (NEGATIVE); PH,URINE 5.5 (5.0-8.0); PROTEIN,URINE 30 mg/dL (NEGATIVE)
[2024-09-17] MEDS: diphenhydrAMINE 50 MG/ML SDV IVPUSH ONE (17:08)
[2024-09-17] MEDS: Acetaminophen/Codeine 300-30 MG Tab PO ONE (17:08)
[2024-09-17 17:19] LABS: A/G RATIO 0.6 (1.2-2.2); ALANINE AMINOTRANSFERASE,ALT 23 U/L (12-78); ALBUMIN 2.6 g/dL (3.4-5.0); ALKALINE PHOSPHATASE 65 U/L (46-116); ASPARTATE AMNIOTRANSFERASE,AST 17 U/L (15-37); BILIRUBIN TOTAL 0.2 mg/dL (0.2-1.0); BLOOD UREA NITROGEN,BUN 9 mg/dL (7-18); CALCIUM 8.8 mg/dL (8.5-10.1); CARBON DIOXIDE,CO2 23 mmol/L (21-32); CHLORIDE,CL 103 mmol/L (100-108); CREATININE 0.7 mg/dL (0.6-1.0); EST CRCL DRUG DOSING (CG) 108.01 mL/min; ESTIMATED GFR 118 mL/min (>60); GLUCOSE RANDOM 96 mg/dL (74-106); POTASSIUM,K 3.8 mmol/L (3.6-5.2); PROTEIN TOTAL,TP 7.2 g/dL (6.4-8.2); SODIUM,NA 136 mmol/L (140-148)
[2024-09-17 17:20] LABS: ANION GAP 13.8 mmol/L (5.0-14.0)
[2024-09-17 17:20] LABS: EPITHELIAL CELLS,URINE MANY; RBC,URINE 0-5 (0-5)
[2024-09-17 17:21] LABS: AMORPHOUS SEDIMENT,URINE NOT SEEN; BACTERIA,URINE MODERATE; MUCUS,URINE MODERATE
[2024-09-17] MEDS: Lactated Ringers 1,000 ML IV ONE (18:08)
[2024-09-17 18:09] VITALS: BP 111/68; PULSE 81
[2024-09-17] MEDS: Magnesium Sulfate/Water Premix 2 GM in Premix Bag 1 BAG IV ONE (18:28)
== END 2024-09-17 20:31 | disposition home or self-care (01) ==
LOC: JP.ED 15:58
DX: O99.282 Endocrine, nutritional and metabolic diseases complicating pregnancy, second trimester (principal); E86.0 Dehydration; O99.512 Diseases of the respiratory system complicating pregnancy, second trimester; J45.909 Unspecified asthma, uncomplicated; O99.612 Diseases of the digestive system complicating pregnancy, second trimester; K21.9 Gastro-esophageal reflux disease without esophagitis; Z79.899 Other long term (current) drug therapy; Z88.8 Allergy status to other drugs, medicaments and biological substances; Z91.048 Other nonmedicinal substance allergy status; Z3A.25 25 weeks gestation of pregnancy; Z88.5 Allergy status to narcotic agent
CPT/HCPCS: 36415; 80053; 81001; 83605; 85025; 96361; 96365; 96366; 96375; 99284; A9270; J1200; J3475; J7030

== ENCOUNTER 2025-04-19 17:17 | Emergency (ER) | payer MEDICAID ==
[2025-04-19 17:47] LABS: APPEARANCE,URINE SLIGHTLY CLOUDY (CLEAR); GLUCOSE,URINE NEGATIVE (NEGATIVE); OCCULT BLOOD,URINE NEGATIVE (NEGATIVE)
[2025-04-19 17:55] VITALS: BP 129/99; PULSE 87
[2025-04-19 17:56] LABS: SQUAMOUS EPITHELIAL CELLS,UR MANY /HPF; UROTHELIAL CELLS,URINE NOT SEEN /HPF
== END 2025-04-19 18:47 | disposition home or self-care (01) ==
LOC: JP.ED 17:17
DX: R10.31 Right lower quadrant pain (principal); J45.909 Unspecified asthma, uncomplicated; Z79.51 Long term (current) use of inhaled steroids; Z88.5 Allergy status to narcotic agent; Z88.8 Allergy status to other drugs, medicaments and biological substances
CPT/HCPCS: 74176; 81001; 99284